=== PATIENT | male | born 1960 | race Caucasian/White ===

== ENCOUNTER → 2017-08-14 | Day surgery (SDC) | payer MEDICAID ==
[~2017-08-14] VITALS: Ht 180.3 cm; Wt 74.5 kg
[~2017-08-14] MED LIST: ACETAMINOPHEN 325 MG TAB ONE; ASPI-183 PO; CHLORHEXIDINE GLUCONATE 2 % 1 PACK (2 CLOTHS) TOPICAL PRN; CHOL4POW3 PO; CYCLOPENTOLATE HCL 1% OPHT SOLN 2 ML BTL ONE; DIAZ10TA PO; DILT30TA PO; EPINEPHrine HCL PF/SF (1:1000) 1 MG/ML AMP I-OCULAR ONE; EPINEPHrine-Lidocaine/BSS (PF/SF) 4-120 mg/16 mL OPTH SYR ONE; EPINEPHrine-Lidocaine/BSS (PF/SF) 4-120 mg/16 mL OPTH SYR RIGHT EYE ONE; FURO40TA PO; HYDR-3133 PO; INDO25CA PO; LACTATED RINGER'S 1000 ML IV PRN; LEVA0.637 INH; OMEP40CA2 PO; PHENYLEPHRINE HCL 10% OPTH SOLN 5 ML BTL ONE; POVIDONE IODINE 5% (ANTISEPSIS KIT) 4 APPLICATIONS EACH NARE PRN; SODIUM CHLORID 0.9% 500 ML IV PRN; SPIR50TA PO; SUGAMMADEX SODIUM 200 MG/2 ML VIAL IV PUSH ONE; TETRACAINE 0.5% OPTH SOLN 4 ML BTL ONE; TOBRAMYCIN/DEXAMETHASONE OPTH OINT 3.5 GM TUBE ONE; TROPICAMIDE 1% OPHT SOLN 15 ML BTL ONE; VISCOAT OPHT IRRIG SOLN 0.75 ML SYRINGE ONE; XOPEAER4 INH
[2017-08-14] MEDS: CYCLOPENTOLATE HCL 1% OPHT SOLN 2 ML BTL RIGHT EYE SCH ×3 (07:03→07:13)
[2017-08-14] MEDS: TROPICAMIDE 1% OPHT SOLN 15 ML BTL RIGHT EYE SCH ×3 (07:03→07:13)
[2017-08-14] MEDS: PHENYLEPHRINE HCL 10% OPTH SOLN 5 ML BTL RIGHT EYE SCH ×3 (07:03→07:13)
[2017-08-14] MEDS: TETRACAINE 0.5% OPTH SOLN 4 ML BTL RIGHT EYE SCH ×3 (07:03→07:13)
[2017-08-14 08:10] VITALS: PULSE 83
[2017-08-14 09:25] VITALS: PULSE 85
--- NOTE | 2017-08-14 09:25 | PD.OP ---
Operative Report Date of Surgery: Aug 14, 2017 Preoperative Diagnosis: (1) Nuclear sclerotic cataract of right eye Postoperative Diagnosis: (1) Pseudophakia of right eye Procedure: phacoemulsification and intraocular lens implant right eye Anesthesia: General Surgeon: Venessa Camejo Director Of Strategy & Mobile(s): none Operation and Findings: Patient was consented for surgery and taken back to the operating room. He was put under general anesthesia and prepped and draped in the usual sterile fashion for ophthalmic surgery. A wire lid speculum was placed in the right eye. A paracentesis incision was created at the 11 o'clock position on the limbus. Vision blue dye, intracameral Epishugarcaine, and viscoelastic was injected into the anterior chamber. The main incision was created at the 8 o' clock position on the limbus with a 2.4 mm keratome. A continuous curvilinear capsulorrhexis was made on the anterior lens capsule. Hydrodissection was used to separate the lens from the capsule. Phacoemulsification was used to remove the lens nucleus material. Irrigation and aspiration was used to remove the remaining cortical material. The lens implant ([id number] SN [id number]) was placed in the capsular bag. Viscoelastic was removed with irrigation and aspiration. The incisions were irrigated and found to be watertight. Tobradex ointment, a patch, and shield were placed on the right eye. The patient was sent to PACU in stable condition. Venessa Camejo MD Aug 14, 2017 09:25
[2017-08-14 09:47] VITALS: PULSE 86
[2017-08-14 10:00] VITALS: BP 120/75; PULSE 89; RESP 16; TEMP 98.4; O2SAT 98
== END | disposition home or self-care (01) ==
LOC: PHSDC 06:18 → EDSTATUS 08:30
PROVIDERS: ATTEND Ophthalmology
DX: H25.11 Age-related nuclear cataract, right eye (principal)
CPT/HCPCS: 00142; 66984; J0171; J3010; J7040; V2632